=== PATIENT | female | born 1975 | race American Indian/Alaskan Native ===

== ENCOUNTER 2016-08-15 12:24 | Emergency (ER) | payer MEDICAID ==
[2016-08-15 16:57] VITALS: BP 170/83
--- NOTE | 2016-08-15 17:20 | Emergency Department Report ---
- General Chief Complaint: Upper Respiratory Infection Stated Complaint: FABIOLA/BACK PAIN Time Seen by Provider: 08/15/16 16:55 Source: patient Mode of arrival: Ambulatory Limitations: No Limitations - History of Present Illness Initial Comments: Patient presents with congestion, productive cough 1 week. She does work at a daycare facility. She went to [facility] this morning and was given a steroid shot and a nebulizer treatment and O2. She was not getting better at that time so they decided to call EMS to send her here. She states when she got here and was sitting in the waiting area she started feeling better and her shortness of breath resolved. She also has a history of hypertension however it has been controlled recently. She is not on any medication for this. She does state that she hasn't taken [id number] decongestant. MD Complaint: cough, nasal congestion -: week(s) (1) Severity: moderate Severity scale (0 -10): 6 Quality: dull, aching Consistency: intermittent Improves With: nothing Worsens With: nothing Context: sick contacts Associated Symptoms: rhinorrhea, nasal congestion, cough, shortness of breath ( that has resolved). denies: stiff neck - Related Data Previous Rx's Medication Instructions Recorded Last Taken Type Cetirizine HCl [ZyrTEC] 10 mg PO QDAY #5 capsule 06/11/16 Unknown Rx Diphenhydramine HCl [Benadryl 25 mg PO BID PRN #10 tablet 06/11/16 Unknown Rx Allergy TAB] methylPREDNISolone [Medrol] 4 mg PO QAM #1 dosepack 06/11/16 Unknown Rx ALBUTEROL Inhaler [ProAir HFA 2 puff IH QID PRN #1 inhalation 08/15/16 Unknown Rx Inhaler] Allergies Allergy/AdvReac Type Severity Reaction Status Date / Time No Known Allergies Allergy Verified 08/15/16 12:46 ED Review of Systems ROS: Stated complaint: FABIOLA/BACK PAIN Other details as noted in HPI Constitutional: denies: chills, fever Eyes: denies: eye pain, eye discharge, vision change ENT: congestion. denies: ear pain, throat pain Respiratory: cough, shortness of breath (resolved). denies: wheezing Cardiovascular: denies: chest pain, palpitations Gastrointestinal: denies: abdominal pain, nausea, diarrhea Genitourinary: denies: urgency, dysuria, discharge Musculoskeletal: denies: back pain, joint swelling, arthralgia Skin: denies: rash, lesions Neurological: denies: headache, weakness, paresthesias ED Past Medical Hx - Past Medical History Hx Hypertension: Yes - Surgical History Additional Surgical History: TUBAL LIGATION. X 2 - Social History Smoking Status: Never Smoker Substance Use Type: Alcohol - Medications Home Medications: Home Medications Medication Instructions Recorded Confirmed Last Taken Type Cetirizine HCl [ZyrTEC] 10 mg PO QDAY #5 capsule 06/11/16 Unknown Rx Diphenhydramine HCl [Benadryl 25 mg PO BID PRN #10 tablet 06/11/16 Unknown Rx Allergy TAB] methylPREDNISolone [Medrol] 4 mg PO QAM #1 dosepack 06/11/16 Unknown Rx ALBUTEROL Inhaler [ProAir HFA 2 puff IH QID PRN #1 inhalation 08/15/16 Unknown Rx Inhaler] ED Physical Exam - General Limitations: No Limitations General appearance: alert, in no apparent distress - Head Head exam: Present: atraumatic, normocephalic - Eye Eye exam: Present: normal appearance, PERRL - ENT ENT exam: Present: mucous membranes moist, TM's normal bilaterally - Expanded ENT Exam Expanded Mouth exam: Present: normal external inspection Teeth exam: Present: normal inspection Throat exam: Positive: normal inspection - Neck Neck exam: Present: normal inspection, full ROM. Absent: tenderness, lymphadenopathy - Respiratory Respiratory exam: Present: normal lung sounds bilaterally. Absent: respiratory distress, wheezes, rales, rhonchi, stridor - Cardiovascular Cardiovascular Exam: Present: regular rate, normal rhythm. Absent: systolic murmur, diastolic murmur, rubs, gallop - GI/Abdominal GI/Abdominal exam: Present: soft, normal bowel sounds. Absent: tenderness - Extremities Exam Extremities exam: Present: normal inspection, full ROM - Back Exam Back exam: Present: normal inspection, full ROM - Neurological Exam Neurological exam: Present: alert, oriented X3 - Psychiatric Psychiatric exam: Present: normal affect, normal mood - Skin Skin exam: Present: warm, dry, intact, normal color. Absent: rash ED Course Vital Signs 08/15/16 08/15/16 12:42 16:55 Temperature 98.3 F 99.1 F Pulse Rate 85 88 Respiratory 18 18 Rate Blood Pressure 173/92 Blood Pressure 170/83 [Left] O2 Sat by Pulse 100 97 Oximetry ED Medical Decision Making - Medical Decision Making Patient presents with congestion, cough, shortness of breath 1 week. She has been given steroid shot and nebulizer treatment today. I will give her an albuterol inhaler for cough, shortness of breath, wheezing. - Differential Diagnosis pneumonia, URI, asthma Critical Care Time: No Critical care attestation.: If time is entered above; I have spent that time in minutes in the direct care of this critically ill patient, excluding procedure time. ED Disposition Clinical Impression: Shortness of breath, Cough, Bronchitis Disposition: DISCHARGED TO HOME OR SELFCARE Is pt being admited?: No Does the pt Need Aspirin: No Condition: Stable Instructions: Acute Bronchitis (ED), Albuterol (By breathing) Additional Instructions: Follow-up with PCP if symptoms did not resolve or worsen. Prescriptions: ALBUTEROL Inhaler [ProAir HFA Inhaler] 2 puff IH QID PRN #1 inhalation PRN Reason: Shortness Of Breath Forms: Work/School Release Form(ED) Time of Disposition: 17:22
== END 2016-08-15 17:33 | disposition home or self-care (01) ==
LOC: ED 12:24
DX: J40 Bronchitis, not specified as acute or chronic (principal); I10 Essential (primary) hypertension; R09.81 Nasal congestion
CPT/HCPCS: 99283

== ENCOUNTER 2016-08-19 23:01 | Emergency (ER) | payer MEDICAID ==
[2016-08-19 23:16] VITALS: BP 150/58
--- NOTE | 2016-08-19 23:28 | Emergency Department Report ---
Chief Complaint: Chest Pain Stated Complaint: COLD SX Time Seen by Provider: 08/19/16 23:21 - HPI History of Present Illness: Patient here complaining in of chest tightness to left chest area she says she' s having difficulty breathing. She said it started with a cold. Chest pain is 7 out of 10 and it feels tight without any radiation. Patient says she has a history of high blood pressure. Denies any history of heart disease. Denies any fever but reports chills. Denies any nausea vomiting or diarrhea. She reports cough . - ROS Review of Systems: All systems are negative unless stated in HPI above. - Exam Vital Signs: Vital Signs 08/19/16 23:09 Temperature 99.7 F H Pulse Rate 79 Respiratory 16 Rate Blood Pressure 150/58 O2 Sat by Pulse 95 Oximetry Physical Exam: General: This is a 40-year-old female well-nourished well-developed in no acute distress. CV: S1, S2. Regular rate and rhythm. Lungs: Clear to auscultate bilaterally, no rhonchi wheezes or rales. Dry cough MSE screening note: Focused history and physical exam performed. Due to findings the following was ordered:see mdm ED Medical Decision Making - Medical Decision Making Medical decision making: Patient seen by provider in triage area. Appropriate protocol activated and patient to main ED to be seen by physician. ED Disposition for MSE Condition: Stable
[2016-08-20 00:14] LABS: Basophils % (Auto) 0.7 % (0.0-1.8); Hematocrit 30.1 % (30.3-42.9); Mean Corpuscular HGB Conc 33 % (30-34); Mean Corpuscular Hemoglobin 27 pg (28-32); Mean Corpuscular Volume 80 fl (79-97); Platelet Count 274 K/mm3 (140-440); Red Blood Count 3.75 M/mm3 (3.65-5.03); Red Cell Distribution Width 16.7 % (13.2-15.2); White Blood Count 7.7 K/mm3 (4.5-11.0)
[2016-08-20 01:04] LABS: BUN/Creatinine Ratio 16.25; Blood Urea Nitrogen 13 mg/dL (7-17); Calcium 9.2 mg/dL (8.4-10.2); Carbon Dioxide 22 mmol/L (22-30); Chloride 103.1 mmol/L (98-107); Glucose 130 mg/dL (65-100); Potassium 3.5 mmol/L (3.6-5.0); Sodium 141 mmol/L (137-145)
[2016-08-20 01:08] LABS: Anion Gap 19 mmol/L
--- NOTE | 2016-08-20 09:37 | XRay Report ---
Single view chest: History: Shortness of breath, chest pain. Findings: Normal cardiomediastinal silhouette. Trachea is midline. No consolidation, pneumothorax or pleural effusion. Impression: No acute cardiopulmonary findings.
--- NOTE | 2016-08-20 12:47 | ED Elopement Review ---
ED Pt Elopement review - Results review Lab results: Laboratory Tests 08/19/16 08/19/16 08/19/16 23:45 23:45 23:45 WBC 7.7 RBC 3.75 Hgb 10.0 L Hct 30.1 L MCV 80 MCH 27 L MCHC 33 RDW 16.7 H Plt Count 274 Lymph % (Auto) 42.8 H [place] % (Auto) 6.4 Eos % (Auto) 4.0 Baso % (Auto) 0.7 Lymph # 3.3 [place] # 0.5 Eos # 0.3 Baso # 0.1 Seg Neutrophils % 46.1 Seg Neutrophils # 3.5 Sodium 141 Potassium 3.5 L Chloride 103.1 Carbon Dioxide 22 Anion Gap 19 BUN 13 Creatinine 0.8 Estimated GFR > 60 BUN/Creatinine Ratio 16.25 Glucose 130 H Calcium 9.2 Troponin T < 0.010 HCG, Qual Negative 08/20/16 02:37 WBC RBC Hgb Hct MCV MCH MCHC RDW Plt Count Lymph % (Auto) [place] % (Auto) Eos % (Auto) Baso % (Auto) Lymph # [place] # Eos # Baso # Seg Neutrophils % Seg Neutrophils # Sodium Potassium Chloride Carbon Dioxide Anion Gap BUN Creatinine Estimated GFR BUN/Creatinine Ratio Glucose Calcium Troponin T < 0.010 HCG, Qual - Call Back decision Pt Call Back Decision: No action required
== END 2016-08-20 03:45 | disposition left against medical advice (07) ==
LOC: ED 23:01
DX: R07.9 Chest pain, unspecified (principal); R05 Cough; I10 Essential (primary) hypertension; Z53.21 Procedure and treatment not carried out due to patient leaving prior to being seen by health care provider
CPT/HCPCS: 36415; 71020; 80048; 84484; 84703; 85025; 93005; 93010

== ENCOUNTER 2016-08-20 20:35 | Emergency (ER) | payer MEDICAID ==
[2016-08-20 20:47] VITALS: BP 157/84
--- NOTE | 2016-08-20 23:59 | Emergency Department Report ---
HPI - General Chief Complaint: Dyspnea/Respdistress Time Seen by Provider: 08/20/16 23:48 - HPI HPI: Patient here she says she was here last night but she had to leave. She had lab results an x-ray done but she didn't get the results. She says she feels chest and nasal congestion. She said when she coughs her chest hurt. Denies any fever or chills. She says she's feels like she is not getting all the mucus out of her chest. She said this is been going on for over 1 week. Patient's chest x-ray from yesterday showed no acute cardiopulmonary processes. Lab work showed that her potassium was 3.5 which is slightly decreased. She has mild anemia. SHe had cardiac workup and goes around negative. has a history of high blood pressure. She denies any difficulty breathing at present. ED Past Medical Hx - Past Medical History Previous Medical History?: Yes Hx Hypertension: Yes - Surgical History Past Surgical History?: Yes Additional Surgical History: TUBAL LIGATION. X 2 - Family History Family history: hypertension - Social History Smoking Status: Never Smoker Substance Use Type: None - Medications Home Medications: Home Medications Medication Instructions Recorded Confirmed Last Taken Type Diphenhydramine HCl [Benadryl 25 mg PO BID PRN #10 tablet 06/11/16 Unknown Rx Allergy TAB] ALBUTEROL Inhaler [ProAir HFA 2 puff IH QID PRN #1 inhalation 08/15/16 Unknown Rx Inhaler] Amoxicillin [Amoxicillin TAB] 875 mg PO BID #1 tablet 08/21/16 Unknown Rx Cetirizine HCl [ZyrTEC] 10 mg PO QDAY #10 capsule 08/21/16 Unknown Rx Fluticasone [Flonase] 1 spray NS QDAY #1 bottle 08/21/16 Unknown Rx methylPREDNISolone [Medrol Dose 4 mg PO QAM #1 dosepack 08/21/16 Unknown Rx Douglas] ED Review of Systems ROS: Stated complaint: CONGESTION/BREATHING PAIN Other details as noted in HPI Comment: All other systems reviewed and negative Constitutional: denies: chills, fever ENT: congestion. denies: ear pain, throat pain Respiratory: cough. denies: orthopnea, shortness of breath, SOB with exertion, SOB at rest, stridor, wheezing Cardiovascular: chest pain (with cough). denies: palpitations, edema, syncope Gastrointestinal: denies: abdominal pain, nausea, vomiting Musculoskeletal: denies: back pain, arthralgia Skin: denies: rash Neurological: denies: headache Physical Exam - Physical Exam Vital Signs: Vital Signs 08/20/16 20:40 Temperature 98.8 F Pulse Rate 85 Blood Pressure 157/84 O2 Sat by Pulse 99 Oximetry General: This is a 40-year-old female well-nourished well-developed in no acute distress. Physical Exam: Head: Normocephalic atraumatic Mouth: Moist, no pharyngeal exudate or erythema. Uvula is midline and oral airway is patent. No facial swelling. No peritonsillar abscesses. Neck: Supple, no C-spine tenderness, no tracheal deviation. Nontender to palpate. no adenopathy Ears: Bilateral TMs congested without erythema .bilateral EAC without any redness swelling or drainage Eyes: Bilateral pupils equal and reactive to light, bilateral EOM intact. Bilateral sclera and conjunctiva without injection. Normal accommodation Nose: Mucosa moist, positive congestion and erythema. Positive clear drainage. maxillary tender to palpate. Lungs: Clear to auscultate bilaterally no rhonchi wheezes or rales. Normal work of breathing extremity; No CCE. +2 pulses. No neurovascular compromise Cardiovascular: S1-S2, regular rate rhythm. No murmurs. Skin: clean Dry and intact no rash no lesions Psych: Normal mood and behavior ED Course Vital Signs 08/20/16 20:40 Temperature 98.8 F Pulse Rate 85 Blood Pressure 157/84 O2 Sat by Pulse 99 Oximetry - Reevaluation(s) Reevaluation #1: 08/21/16 00:14 KDUR 40 mEq by mouth given in emergency room for potassium of 3.5. ED Medical Decision Making - Radiology Data Radiology results: report reviewed X-ray results of chest from yesterday revealed no acute cardiopulmonary processes - Medical Decision Making ED course: I Discussed with patient her lab results and x-ray results from yesterday. Her that she has sinusitis and will be treated with antibiotic, steroids and nasal Flonase. Patient repleted with K-Dur 40 mEq by mouth times one dose emergency room for potassium of 3.5. She was understanding of discharge instruction and discharged home with prescription for amoxicillin, prednisone and nasal Flonase. Critical care attestation.: If time is entered above; I have spent that time in minutes in the direct care of this critically ill patient, excluding procedure time. ED Disposition Clinical Impression: Cough Sinusitis, acute Qualifiers: Sinusitis location: unspecified location Recurrence: not specified as recurrent Qualified Code(s): J01.90 - Acute sinusitis, unspecified Disposition: DISCHARGED TO HOME OR SELFCARE Is pt being admited?: No Does the pt Need Aspirin: No Condition: Stable Instructions: Sinusitis (ED), Acute Cough (ED) Prescriptions: Amoxicillin [Amoxicillin TAB] 875 mg PO BID #1 tablet Fluticasone [Flonase] 1 spray NS QDAY #1 bottle methylPREDNISolone [Medrol Dose Douglas] 4 mg PO QAM #1 dosepack Cetirizine HCl [ZyrTEC] 10 mg PO QDAY #10 capsule Referrals: VAISHALI RUIZ NP-C [Primary Care Provider] - 2-3 Days Forms: Work/School Release Form(ED)
[2016-08-21] MEDS ORDERED: K-DUR PO ONE (00:07)
== END 2016-08-21 00:33 | disposition home or self-care (01) ==
LOC: ED 20:35
DX: J01.90 Acute sinusitis, unspecified (principal); R05 Cough; I10 Essential (primary) hypertension; Z98.51 Tubal ligation status
CPT/HCPCS: 99282

== ENCOUNTER 2016-08-26 21:14 | Emergency (ER) | payer MEDICAID ==
[2016-08-27 02:27] LABS: Basophils % (Auto) 0.6 % (0.0-1.8); Eosinophils % (Auto) 3.5 % (0.0-4.3); Hematocrit 35.8 % (30.3-42.9); Hemoglobin 11.6 gm/dl (10.1-14.3); Mean Corpuscular HGB Conc 33 % (30-34); Mean Corpuscular Volume 80 fl (79-97); Platelet Count 380 K/mm3 (140-440); Red Blood Count 4.49 M/mm3 (3.65-5.03)
[2016-08-27 02:38] VITALS: BP 134/82
[2016-08-27 02:44] LABS: Creatine Kinase 142 units/L (30-135)
--- NOTE | 2016-08-27 03:03 | Emergency Department Report ---
ED General Adult HPI - General Chief complaint: Upper Respiratory Infection Stated complaint: WEAKNESS, DIZZY Time Seen by Provider: 08/27/16 01:04 Source: patient Mode of arrival: Ambulatory Limitations: No Limitations - History of Present Illness Severity scale (0 -10): 2 - Related Data Previous Rx's Medication Instructions Recorded Last Taken Type Diphenhydramine HCl [Benadryl 25 mg PO BID PRN #10 tablet 06/11/16 Unknown Rx Allergy TAB] ALBUTEROL Inhaler [ProAir HFA 2 puff IH QID PRN #1 inhalation 08/15/16 Unknown Rx Inhaler] Amoxicillin [Amoxicillin TAB] 875 mg PO BID #1 tablet 08/21/16 Unknown Rx Cetirizine HCl [ZyrTEC] 10 mg PO QDAY #10 capsule 08/21/16 Unknown Rx Fluticasone [Flonase] 1 spray NS QDAY #1 bottle 08/21/16 Unknown Rx methylPREDNISolone [Medrol Dose 4 mg PO QAM #1 dosepack 08/21/16 Unknown Rx Douglas] Allergies Allergy/AdvReac Type Severity Reaction Status Date / Time No Known Allergies Allergy Verified 08/15/16 12:46 ED Review of Systems ROS: Stated complaint: WEAKNESS, DIZZY Other details as noted in HPI ED Past Medical Hx - Past Medical History Hx Hypertension: Yes - Surgical History Past Surgical History?: No Additional Surgical History: TUBAL LIGATION. X 2 - Social History Smoking Status: Never Smoker Substance Use Type: Alcohol, Non Opiate Pain, Prescribed - Medications Home Medications: Home Medications Medication Instructions Recorded Confirmed Last Taken Type Diphenhydramine HCl [Benadryl 25 mg PO BID PRN #10 tablet 06/11/16 Unknown Rx Allergy TAB] ALBUTEROL Inhaler [ProAir HFA 2 puff IH QID PRN #1 inhalation 08/15/16 Unknown Rx Inhaler] Amoxicillin [Amoxicillin TAB] 875 mg PO BID #1 tablet 08/21/16 Unknown Rx Cetirizine HCl [ZyrTEC] 10 mg PO QDAY #10 capsule 08/21/16 Unknown Rx Fluticasone [Flonase] 1 spray NS QDAY #1 bottle 08/21/16 Unknown Rx methylPREDNISolone [Medrol Dose 4 mg PO QAM #1 dosepack 08/21/16 Unknown Rx Douglas] ED Physical Exam - General Limitations: No Limitations ED Course Vital Signs 08/26/16 08/27/16 08/27/16 21:29 02:37 02:38 Temperature 98.7 F 98.7 F Pulse Rate 73 64 Respiratory 18 14 Rate Blood Pressure 142/61 Blood Pressure 142/61 134/82 [Left] O2 Sat by Pulse 99 100 100 Oximetry ED Medical Decision Making - Lab Data Result diagrams: 08/27/16 01:47 - EKG Data EKG shows normal: sinus rhythm, axis, intervals, QRS complexes, ST-T waves Rate: normal - EKG Data Interpretation: normal EKG Critical care attestation.: If time is entered above; I have spent that time in minutes in the direct care of this critically ill patient, excluding procedure time. ED Disposition Clinical Impression: Sinus headache Disposition: DISCHARGED TO HOME OR SELFCARE Is pt being admited?: No Does the pt Need Aspirin: No Condition: Stable Instructions: Acute Headache (ED) Additional Instructions: Take tylenol or ibuprofen as needed for discomforts. Rest. Drink plenty of fluids. Referrals: PRIMARY CARE, [Primary Care Provider] - 3-5 Days Time of Disposition: 03:02
[2016-08-27 03:11] LABS: Mean Corpuscular Hemoglobin 26 pg (28-32)
== END 2016-08-27 03:26 | disposition home or self-care (01) ==
LOC: ED 21:14
DX: R51 Headache (principal); I10 Essential (primary) hypertension; Z98.51 Tubal ligation status
CPT/HCPCS: 36415; 82550; 82553; 84484; 85025; 93005; 93010; 99283

== ENCOUNTER 2016-10-15 10:47 | Emergency (ER) | payer MEDICAID ==
--- NOTE | 2016-10-15 16:11 | Emergency Department Report ---
ED Extremity Problem HPI - General Chief complaint: Extremity Problem,Nontraumatic Stated complaint: LT KNEE PAIN Time Seen by Provider: 10/15/16 15:58 Source: patient Mode of arrival: Ambulatory Limitations: No Limitations - History of Present Illness Initial comments: 34-year-old female past medical history none presents with complaint of one week of left-sided knee pain. 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 Denies any paresthesias in the extremity. States she feels pain just behind her kneecap. Patient is fully ambulatory no redness or visible swelling of left knee. No fevers or chills reported. Denies any IV drug use. The chest has not taken anything for the pain. MD Complaint: extremity pain Onset/Timin -: week(s) Location: left History of Same: No Radiation: none Severity scale (0 -10): 5 Quality: aching Consistency: constant Improves with: nothing Worsens with: weight bearing, exertion Associated Symptoms: denies other symptoms - Related Data Previous Rx's Medication Instructions Recorded Last Taken Type Diphenhydramine HCl [Benadryl 25 mg PO BID PRN #10 tablet 06/11/16 Unknown Rx Allergy TAB] ALBUTEROL Inhaler [ProAir HFA 2 puff IH QID PRN #1 inhalation 08/15/16 Unknown Rx Inhaler] Amoxicillin [Amoxicillin TAB] 875 mg PO BID #1 tablet 08/21/16 Unknown Rx Cetirizine HCl [ZyrTEC] 10 mg PO QDAY #10 capsule 08/21/16 Unknown Rx Fluticasone [Flonase] 1 spray NS QDAY #1 bottle 08/21/16 Unknown Rx methylPREDNISolone [Medrol Dose 4 mg PO QAM #1 dosepack 08/21/16 Unknown Rx Douglas] Naproxen [Naprosyn TAB] 500 mg PO BID PRN #30 tablet 10/15/16 Unknown Rx Allergies Allergy/AdvReac Type Severity Reaction Status Date / Time No Known Allergies Allergy Verified 08/15/16 12:46 ED Review of Systems ROS: Stated complaint: LT KNEE PAIN Other details as noted in HPI Constitutional: denies: chills, fever Eyes: denies: eye pain, eye discharge, vision change ENT: denies: ear pain, throat pain Respiratory: denies: cough, shortness of breath, wheezing Cardiovascular: denies: chest pain, palpitations Endocrine: no symptoms reported Gastrointestinal: denies: abdominal pain, nausea, diarrhea Genitourinary: denies: urgency, dysuria, discharge Musculoskeletal: arthralgia (1 week of left-sided knee pain). denies: back pain , joint swelling Skin: denies: rash, lesions Neurological: denies: headache, weakness, paresthesias Psychiatric: denies: anxiety, depression Hematological/Lymphatic: denies: easy bleeding, easy bruising ED Past Medical Hx - Past Medical History Previous Medical History?: Yes Hx Hypertension: Yes - Surgical History Past Surgical History?: Yes Additional Surgical History: TUBAL LIGATION. X 2 - Social History Smoking Status: Never Smoker Substance Use Type: Alcohol - Medications Home Medications: Home Medications Medication Instructions Recorded Confirmed Last Taken Type Diphenhydramine HCl [Benadryl 25 mg PO BID PRN #10 tablet 06/11/16 Unknown Rx Allergy TAB] ALBUTEROL Inhaler [ProAir HFA 2 puff IH QID PRN #1 inhalation 08/15/16 Unknown Rx Inhaler] Amoxicillin [Amoxicillin TAB] 875 mg PO BID #1 tablet 08/21/16 Unknown Rx Cetirizine HCl [ZyrTEC] 10 mg PO QDAY #10 capsule 08/21/16 Unknown Rx Fluticasone [Flonase] 1 spray NS QDAY #1 bottle 08/21/16 Unknown Rx methylPREDNISolone [Medrol Dose 4 mg PO QAM #1 dosepack 08/21/16 Unknown Rx Douglas] Naproxen [Naprosyn TAB] 500 mg PO BID PRN #30 tablet 10/15/16 Unknown Rx ED Physical Exam - General Limitations: No Limitations General appearance: alert, in no apparent distress - Head Head exam: Present: atraumatic, normocephalic - Eye Eye exam: Present: normal appearance, PERRL, EOMI - ENT ENT exam: Present: mucous membranes moist - Neck Neck exam: Present: normal inspection - Respiratory Respiratory exam: Present: normal lung sounds bilaterally. Absent: respiratory distress - Cardiovascular Cardiovascular Exam: Present: regular rate, normal rhythm. Absent: systolic murmur, diastolic murmur, rubs, gallop - GI/Abdominal GI/Abdominal exam: Present: soft, normal bowel sounds - Extremities Exam Extremities exam: Present: normal inspection - Expanded Lower Extremity Exam Left Hip exam: Present: normal inspection, full ROM Upper Leg exam: Present: normal inspection, full ROM Knee exam: Present: normal inspection, full ROM, pain/laxity with valgus, full knee extension (flexion and extension fully intact against resistance) Lower Leg exam: Present: normal inspection, full ROM Ankle exam: Present: normal inspection, full ROM Foot/Toe exam: Present: normal inspection, full ROM Neuro vascular tendon exam: Present: no vascular compromise Gait: Positive: observed and normal - Back Exam Back exam: Present: normal inspection - Neurological Exam Neurological exam: Present: alert, oriented X3, CN II-XII intact, normal gait - Psychiatric Psychiatric exam: Present: normal affect, normal mood - Skin Skin exam: Present: warm, dry, intact, normal color. Absent: rash ED Course Vital Signs 10/15/16 11:17 Temperature 98.4 F Pulse Rate 76 Respiratory 16 Rate Blood Pressure 130/78 O2 Sat by Pulse 100 Oximetry ED Medical Decision Making - Medical Decision Making A/P: Patellofemoral pain, knee strain, knee osteoarthritis 1- Wells Score 0 points Low risk group for DVT. Unlikely according to Wells DVT studies. Left lower extremity neurovascularly intact good popliteal dorsalis pedis and posterior tibial pulses good sensation knee range of motion fully intact against resistance to flexion and extension, x-ray suggestive of possible osteoarthritis of left knee 2- RICE therapy, Marco wrap, naproxen when necessary for pain 3- follow up with primary care and orthopedics Critical care attestation.: If time is entered above; I have spent that time in minutes in the direct care of this critically ill patient, excluding procedure time. ED Disposition Clinical Impression: Left knee pain Qualifiers: Chronicity: chronic Qualified Code(s): M25.562 - Pain in left knee; G89.29 - Other chronic pain Disposition: DISCHARGED TO HOME OR SELFCARE Is pt being admited?: No Does the pt Need Aspirin: No Condition: Stable Instructions: Knee Pain (ED), Patellofemoral Pain Syndrome (ED), Arthralgia (ED ), RICE Therapy (ED) Prescriptions: Naproxen [Naprosyn TAB] 500 mg PO BID PRN #30 tablet PRN Reason: Pain Referrals: FRANCISCA LEYVA JR, MD [Staff Physician] - 3-5 Days [facility] [Provider Group] - 3-5 Days BOWEN MI MD [Staff Physician] - 3-5 Days Forms: Work/School Release Form(ED) Time of Disposition: 16:51
[2016-10-15] MEDS ORDERED: MOTRIN PO ONE (16:15)
[2016-10-15 17:31] VITALS: BP 125/86
--- NOTE | 2016-10-16 09:00 | XRay Report ---
LEFT KNEE: The bony architecture is intact without evidence of fracture or dislocation. No significant soft tissue abnormality is seen. IMPRESSION: Normal left knee.
== END 2016-10-15 17:30 | disposition home or self-care (01) ==
LOC: ED 10:47
DX: M25.562 Pain in left knee (principal); I10 Essential (primary) hypertension
CPT/HCPCS: 99283

== ENCOUNTER 2017-06-13 09:26 | Emergency (ER) | payer SELFPAY ==
[2017-06-13 10:00] VITALS: BP 135/78
[2017-06-13] MEDS ORDERED: TORADOL IM ONE (11:25)
--- NOTE | 2017-06-13 11:45 | Emergency Department Report ---
ED Back Pain/Injury HPI - General Chief Complaint: Back Pain/Injury Stated Complaint: LOWER BACK PAIN Time Seen by Provider: 06/13/17 11:15 Source: patient Limitations: No Limitations - History of Present Illness Initial Comments: This is a 41-year-old female nontoxic, well nourished in appearance, no acute signs of distress presents to the ED with c/o of low back pain that radiates towards right-sided buttock and right lower extremity. Patient stated this is a chronic condition and is intermittent and relieved with Motrin mostly but now has no relief. Patient states she woke up with this but denies any trauma. Denies any numbness, tingling, fever, chills, nausea, vomiting, chest pain or shortness of breath. Denies any allergies. Denies dysuria, polyuria, hematuria. Denies past medical history. Patient denies any bladder or bowel instability. MD Complaint: back pain -: Gradual Similar Symptoms Previously: Yes Place: home Radiation: buttocks, right leg Severity: mild Severity scale (0 -10): 8 Quality: aching Consistency: constant Improves With: movement, walking Worsens With: supine, sitting upright Associated Symptoms: denies other symptoms. denies: confusion, weakness, chest pain, numbness, difficulty walking, cough, difficulty urinating, diaphoresis, incontinence, fever/chills, constipation, headaches, abdominal pain, loss of appetite, malaise, nausea/vomiting, rash, seizure, shortness of breath, syncope - Related Data Previous Rx's Medication Instructions Recorded Last Taken Type Diphenhydramine HCl [Benadryl 25 mg PO BID PRN #10 tablet 06/11/16 Unknown Rx Allergy TAB] ALBUTEROL Inhaler [ProAir HFA 2 puff IH QID PRN #1 inhalation 08/15/16 Unknown Rx Inhaler] Amoxicillin [Amoxicillin TAB] 875 mg PO BID #1 tablet 08/21/16 Unknown Rx Cetirizine HCl [ZyrTEC] 10 mg PO QDAY #10 capsule 08/21/16 Unknown Rx Fluticasone [Flonase] 1 spray NS QDAY #1 bottle 08/21/16 Unknown Rx methylPREDNISolone [Medrol Dose 4 mg PO QAM #1 dosepack 08/21/16 Unknown Rx Douglas] Naproxen [Naprosyn TAB] 500 mg PO BID PRN #30 tablet 10/15/16 Unknown Rx Cyclobenzaprine [Flexeril] 10 mg PO BID PRN #10 tablet 06/13/17 Unknown Rx Ibuprofen [Motrin] 600 mg PO Q8H PRN #30 tablet 06/13/17 Unknown Rx Allergies Allergy/AdvReac Type Severity Reaction Status Date / Time No Known Allergies Allergy Verified 08/15/16 12:46 ED Review of Systems ROS: Stated complaint: LOWER BACK PAIN Other details as noted in HPI Constitutional: denies: chills, fever Eyes: denies: eye pain, eye discharge, vision change ENT: denies: ear pain, throat pain Respiratory: denies: cough, shortness of breath, wheezing Cardiovascular: denies: chest pain, palpitations Endocrine: no symptoms reported Gastrointestinal: denies: abdominal pain, nausea, diarrhea Genitourinary: denies: urgency, dysuria, discharge Musculoskeletal: back pain. denies: joint swelling, arthralgia Skin: denies: rash, lesions Neurological: denies: headache, weakness, paresthesias Psychiatric: denies: anxiety, depression Hematological/Lymphatic: denies: easy bleeding, easy bruising ED Past Medical Hx - Past Medical History Previous Medical History?: No Hx Hypertension: No - Surgical History Past Surgical History?: No Additional Surgical History: TUBAL LIGATION. X 2 - Social History Smoking Status: Never Smoker Substance Use Type: None - Medications Home Medications: Home Medications Medication Instructions Recorded Confirmed Last Taken Type Diphenhydramine HCl [Benadryl 25 mg PO BID PRN #10 tablet 06/11/16 Unknown Rx Allergy TAB] ALBUTEROL Inhaler [ProAir HFA 2 puff IH QID PRN #1 inhalation 08/15/16 Unknown Rx Inhaler] Amoxicillin [Amoxicillin TAB] 875 mg PO BID #1 tablet 08/21/16 Unknown Rx Cetirizine HCl [ZyrTEC] 10 mg PO QDAY #10 capsule 08/21/16 Unknown Rx Fluticasone [Flonase] 1 spray NS QDAY #1 bottle 08/21/16 Unknown Rx methylPREDNISolone [Medrol Dose 4 mg PO QAM #1 dosepack 08/21/16 Unknown Rx Douglas] Naproxen [Naprosyn TAB] 500 mg PO BID PRN #30 tablet 10/15/16 Unknown Rx Cyclobenzaprine [Flexeril] 10 mg PO BID PRN #10 tablet 06/13/17 Unknown Rx Ibuprofen [Motrin] 600 mg PO Q8H PRN #30 tablet 06/13/17 Unknown Rx ED Physical Exam - General Limitations: No Limitations General appearance: alert, in no apparent distress - Head Head exam: Present: atraumatic, normocephalic - Eye Eye exam: Present: normal appearance, PERRL, EOMI. Absent: scleral icterus, conjunctival injection, nystagmus, periorbital swelling, periorbital tenderness Pupils: Present: normal accommodation - ENT ENT exam: Present: normal exam, normal orophraynx, mucous membranes moist, TM's normal bilaterally, normal external ear exam - Neck Neck exam: Present: normal inspection, full ROM. Absent: tenderness, meningismus, lymphadenopathy, thyromegaly - Respiratory Respiratory exam: Present: normal lung sounds bilaterally. Absent: respiratory distress, wheezes, rales, rhonchi, stridor, chest wall tenderness, accessory muscle use, decreased breath sounds, prolonged expiratory - Cardiovascular Cardiovascular Exam: Present: regular rate, normal rhythm, normal heart sounds. Absent: bradycardia, tachycardia, irregular rhythm, systolic murmur, diastolic murmur, rubs, gallop - GI/Abdominal GI/Abdominal exam: Present: soft, normal bowel sounds. Absent: distended, tenderness, guarding, rebound, rigid, diminished bowel sounds - Rectal Rectal exam: Present: deferred - Extremities Exam Extremities exam: Present: normal inspection, full ROM, normal capillary refill. Absent: tenderness, pedal edema, joint swelling, calf tenderness - Back Exam Back exam: Present: normal inspection, full ROM, paraspinal tenderness (lumbar region). Absent: tenderness, CVA tenderness (R), CVA tenderness (L), muscle spasm, vertebral tenderness, rash noted - Expanded Back Exam Expanded Back exam: Present: normal rectal tone (as per patient). Absent: saddle anesthesia Back exam: Negative Straight Leg Raising: Left, Right - Neurological Exam Neurological exam: Present: alert, oriented X3, CN II-XII intact, normal gait, reflexes normal - Psychiatric Psychiatric exam: Present: normal affect, normal mood - Skin Skin exam: Present: warm, dry, intact, normal color. Absent: rash - Other Other exam information: No bladder or bowel instability. No joint swelling or redness. No deformity. No numbness, no tingling. No ecchymosis. No abdominal distention. ED Course Vital Signs 06/13/17 09:55 Temperature 97.9 F Pulse Rate 74 Respiratory 18 Rate Blood Pressure 135/78 O2 Sat by Pulse 99 Oximetry - Reevaluation(s) Reevaluation #1: 06/13/17 12:08 Patient is speaking in full sentences with no signs of distress noted. ED Medical Decision Making - Medical Decision Making This is a 41-year-old female that presents with low back strain. Patient is stable and was examined by me. Patient received Toradol 30 mg IM the ED which patient states symptoms are improving and are subsiding. UA obtained with normal results. Patient be treated with Flexeril and Motrin at discharge. Patient was instructed Follow-up with a primary care doctor in 3-5 days or if symptoms worsen and continue return to emergency room as soon as possible. At time time of discharge, the patient does not seem toxic or ill in appearance. No acute signs of distress noted. Patient agrees to discharge treatment plan of care. No further questions noted by the patient. Critical care attestation.: If time is entered above; I have spent that time in minutes in the direct care of this critically ill patient, excluding procedure time. ED Disposition Clinical Impression: Low back strain Qualifiers: Encounter type: initial encounter Qualified Code(s): S39.012A - Strain of muscle, fascia and tendon of lower back, initial encounter Disposition: - TO HOME OR SELFCARE Is pt being admited?: No Does the pt Need Aspirin: No Condition: Stable Instructions: Ibuprofen (By mouth), Cyclobenzaprine (By mouth), Low Back Strain (ED) Additional Instructions: Follow-up with a primary care doctor in 3-5 days or if symptoms worsen and continue return to emergency room as soon as possible. Take ibuprofen and Flexeril as prescribed. Do not operate heavy machinery while taking Flexeril due to sedation Prescriptions: Cyclobenzaprine [Flexeril] 10 mg PO BID PRN #10 tablet PRN Reason: Muscle Spasm Ibuprofen [Motrin] 600 mg PO Q8H PRN #30 tablet PRN Reason: Pain Referrals: [facility] [Other] - 3-5 Days MECCA CHOWDARY MD [Staff Physician] - 3-5 Days [facility] [Outside] - 3-5 Days [facility] [Outside] - 3-5 Days Forms: Work/School Release Form(ED)
[2017-06-13 12:32] LABS: Bilirubin,Urine NEG (Negative); Blood,Urine NEG (Negative); Ketones,Urine NEG (Negative); Leukocyte Esterase,Urine NEG (Negative); Mucus,Urine FEW /HPF; Nitrite,Urine NEG (Negative); Protein,Urine <15 mg/dL mg/dL (Negative); Urobilinogen,Urine < 2.0 mg/dL (<2.0)
== END 2017-06-13 12:48 | disposition home or self-care (01) ==
LOC: ED 09:26
DX: S39.012A Strain of muscle, fascia and tendon of lower back, initial encounter (principal); X58.XXXA Exposure to other specified factors, initial encounter; Y93.89 Activity, other specified; Y92.89 Other specified places as the place of occurrence of the external cause; Y99.8 Other external cause status
CPT/HCPCS: 81001; 81025; 96372; 99283; J1885

== ENCOUNTER 2017-07-30 19:27 | Emergency (ER) | payer SELFPAY ==
[2017-07-30 19:57] VITALS: BP 143/68
[2017-07-30] MEDS ORDERED: ASPIRIN PO ONE (19:57)
[2017-07-30 20:24] LABS: Basophils % (Auto) 0.5 % (0.0-1.8); Eosinophils # (Auto) 0.2 K/mm3 (0.0-0.4); Eosinophils % (Auto) 2.6 % (0.0-4.3); Hematocrit 30.7 % (30.3-42.9); Hemoglobin 10.4 gm/dl (10.1-14.3); Lymphocytes # (Auto) 3.6 K/mm3 (1.2-5.4); Lymphocytes % (Auto) 49.8 % (13.4-35.0); Mean Corpuscular HGB Conc 34 % (30-34); Mean Corpuscular Hemoglobin 29 pg (28-32); Mean Corpuscular Volume 87 fl (79-97); Monocytes # (Auto) 0.5 K/mm3 (0.0-0.8); Monocytes % (Auto) 6.5 % (0.0-7.3); Platelet Count 254 K/mm3 (140-440); Red Blood Count 3.54 M/mm3 (3.65-5.03); Red Cell Distribution Width 14.7 % (13.2-15.2)
[2017-07-30 20:32] LABS: BUN/Creatinine Ratio 12; Blood Urea Nitrogen 11 mg/dL (7-17); Calcium 8.8 mg/dL (8.4-10.2); Hemolysis Index 4
== END 2017-07-31 02:25 | disposition left against medical advice (07) ==
LOC: ED 19:27
DX: Z53.21 Procedure and treatment not carried out due to patient leaving prior to being seen by health care provider (principal)
CPT/HCPCS: 36415; 80048; 84484; 84703; 85025; 93005; 93010

== ENCOUNTER 2017-08-10 20:48 | Emergency (ER) | payer SELFPAY ==
[2017-08-10 21:26] VITALS: BP 133/88
[2017-08-10] MEDS ORDERED: ASPIRIN PO ONE (21:27)
[2017-08-10 22:35] LABS: HCG Qualitative,Urine Negative (Negative)
== END 2017-08-11 10:30 | disposition left against medical advice (07) ==
LOC: ED 20:48
DX: R07.9 Chest pain, unspecified (principal); Z53.21 Procedure and treatment not carried out due to patient leaving prior to being seen by health care provider
CPT/HCPCS: 81025; 93005; 93010

== ENCOUNTER 2017-09-05 19:24 | Emergency (ER) | payer SELFPAY ==
[2017-09-05 20:09] VITALS: BP 134/62
[2017-09-05 21:35] LABS: Bilirubin,Urine NEG (Negative); Blood,Urine MOD (Negative); Color,Urine Red (Yellow); Nitrite,Urine NEG (Negative); Urobilinogen,Urine < 2.0 mg/dL (<2.0)
[2017-09-05 21:37] LABS: RBC,Urine > 182.0 /HPF (0.0-6.0)
[2017-09-05 22:00] LABS: Basophils # (Auto) 0.1 K/mm3 (0.0-0.1); Basophils % (Auto) 0.7 % (0.0-1.8); Eosinophils # (Auto) 0.1 K/mm3 (0.0-0.4); Eosinophils % (Auto) 1.7 % (0.0-4.3); Hemoglobin 10.5 gm/dl (10.1-14.3); Lymphocytes # (Auto) 3.7 K/mm3 (1.2-5.4); Lymphocytes % (Auto) 50.6 % (13.4-35.0); Mean Corpuscular HGB Conc 33 % (30-34); Mean Corpuscular Hemoglobin 28 pg (28-32); Mean Corpuscular Volume 86 fl (79-97); Monocytes # (Auto) 0.4 K/mm3 (0.0-0.8); Monocytes % (Auto) 5.6 % (0.0-7.3); Platelet Count 304 K/mm3 (140-440); Red Blood Count 3.72 M/mm3 (3.65-5.03); Red Cell Distribution Width 14.9 % (13.2-15.2)
[2017-09-05 22:20] LABS: Alanine Aminotransferase 8 units/L (7-56); Albumin 4.3 g/dL (3.9-5); BUN/Creatinine Ratio 16; Blood Urea Nitrogen 13 mg/dL (7-17); Calcium 9.4 mg/dL (8.4-10.2); Hemolysis Index 7
== END 2017-09-06 00:20 | disposition left against medical advice (07) ==
LOC: ED 19:24
DX: R10.9 Unspecified abdominal pain (principal); Z53.21 Procedure and treatment not carried out due to patient leaving prior to being seen by health care provider
CPT/HCPCS: 36415; 80053; 81001; 84703; 85025

== ENCOUNTER 2019-06-15 19:23 | Emergency (ER) | payer OTHER ==
[2019-06-15 19:38] VITALS: BP 171/80
--- NOTE | 2019-06-15 20:10 | Emergency Department Report ---
ED General Adult HPI - General Chief complaint: Upper Respiratory Infection Stated complaint: HEAD CONGESTION Time Seen by Provider: 06/15/19 20:06 Source: patient Mode of arrival: Ambulatory Limitations: No Limitations - History of Present Illness Initial comments: pt is a 43 yo female who presents to the ED with c/o sinus pressure that began two weeks ago. she has associated TAMAYO, nasal congestion, rhinorrhea. she denies any fever, sore throat, no ear pain, no vomiting, no abd pain. PMHx HTN. no allergies to meds. LNMP: 05/26/19. - Related Data Previous Rx's Medication Instructions Recorded Last Taken Type Amoxicillin/Potassium Clav 1 each PO BID 7 Days #14 tablet 06/15/19 Unknown Rx [Augmentin 875-125 Tablet] Cetirizine HCl [Zyrtec 10mg tab] 10 mg PO DAILY #30 tablet 06/15/19 Unknown Rx Fluticasone [Flonase] 1 spray NS QDAY #1 bottle 06/15/19 Unknown Rx Allergies Allergy/AdvReac Type Severity Reaction Status Date / Time No Known Allergies Allergy Verified 08/15/16 12:46 ED Review of Systems ROS: Stated complaint: HEAD CONGESTION Other details as noted in HPI Comment: All other systems reviewed and negative ED Past Medical Hx - Past Medical History Previous Medical History?: Yes Hx Hypertension: Yes - Surgical History Past Surgical History?: Yes Additional Surgical History: TUBAL LIGATION. X 2 - Social History Smoking Status: Never Smoker Substance Use Type: None - Medications Home Medications: Home Medications Medication Instructions Recorded Confirmed Last Taken Type Amoxicillin/Potassium Clav 1 each PO BID 7 Days #14 tablet 06/15/19 Unknown Rx [Augmentin 875-125 Tablet] Cetirizine HCl [Zyrtec 10mg tab] 10 mg PO DAILY #30 tablet 06/15/19 Unknown Rx Fluticasone [Flonase] 1 spray NS QDAY #1 bottle 06/15/19 Unknown Rx ED Physical Exam - General Limitations: No Limitations General appearance: alert, in no apparent distress - Head Head exam: Present: atraumatic, normocephalic - Eye Eye exam: Present: normal appearance, PERRL, EOMI. Absent: periorbital swelling, periorbital tenderness - ENT ENT exam: Present: normal orophraynx, mucous membranes moist, TM's normal bilaterally, normal external ear exam, other (bilateral frontal sinus TTP, erythema turbinates and purulent discharge ) ED Course Vital Signs 06/15/19 06/15/19 19:37 20:06 Temperature 99.1 F 99.1 F Pulse Rate 75 73 Respiratory 18 18 Rate Blood Pressure 171/80 171/80 O2 Sat by Pulse 100 98 Oximetry ED Medical Decision Making - Medical Decision Making pt is a 43 yo female who presents to the ED with c/o sinus pressure that began two weeks ago. she has associated TAMAYO, nasal congestion, rhinorrhea. she denies any fever, sore throat, no ear pain, no vomiting, no abd pain. PMHx HTN. no allergies to meds. LNMP: 05/26/19. VSS. on exam: bilateral frontal sinus TTP, george thema turbinates and purulent discharge. examination consistent with sinusitis. given prescription for augmentin, zyrtec, flonase. advised pt to please use medication as prescribed. increase your water intake. may use a humidifier. may take tylenol or ibuprofen for any discomfort. follow up with a primary care doctor and a ear, nose and throat doctor in the next 2-3 days. return to the emergency room for any new or worsening symptoms. - Differential Diagnosis URI, sinusitis, viral syndrome, otitis media Critical care attestation.: If time is entered above; I have spent that time in minutes in the direct care of this critically ill patient, excluding procedure time. ED Disposition Clinical Impression: Sinusitis Qualifiers: Sinusitis location: frontal Chronicity: acute Recurrence: non-recurrent Qualified Code(s): J01.10 - Acute frontal sinusitis, unspecified Disposition: DC-01 TO HOME OR SELFCARE Is pt being admited?: No Does the pt Need Aspirin: No Condition: Stable Instructions: Sinusitis (ED) Additional Instructions: please use medication as prescribed. increase your water intake. may use a humidifier. may take tylenol or ibuprofen for any discomfort. follow up with a primary care doctor and a ear, nose and throat doctor in the next 2-3 days. return to the emergency room for any new or worsening symptoms. Prescriptions: Amoxicillin/Potassium Clav [Augmentin 875-125 Tablet] 1 each PO BID 7 Days #14 tablet Fluticasone [Flonase] 1 spray NS QDAY #1 bottle Cetirizine HCl [Zyrtec 10mg tab] 10 mg PO DAILY #30 tablet Referrals: SHOSHANA JAMIL MD [Staff Physician] - 2-3 Days your, primary care doctor [Other] - 2-3 Days Time of Disposition: 20:20 Print Language: CITIZEN OF [place]
== END 2019-06-15 20:44 | disposition home or self-care (01) ==
LOC: ED 19:23
DX: J32.9 Chronic sinusitis, unspecified (principal); I10 Essential (primary) hypertension; Z98.51 Tubal ligation status; Z79.899 Other long term (current) drug therapy

== ENCOUNTER 2019-06-17 18:28 | Emergency (ER) | payer OTHER ==
[2019-06-17 18:46] VITALS: BP 163/95
--- NOTE | 2019-06-17 18:50 | Event Note ---
ED Screening Note Date of service: 06/17/19 Time: 18:48 ED Screening Note: This is a 43 y.o. F. that presents to the ER with headache and dizziness. Patient states she is currently taking amoxicillin and flonase for sinusitis. States a near syncopal episode today with blurry vision. LMP 05/26/2019 PMH of HTN This initial assessment/diagnostic orders/clinical plan/treatment(s) is/are subject to change based on patients health status, clinical progression and re- assessment by fellow clinical providers in the ED. Further treatment and workup at subsequent clinical providers discretion. Patient/guardian urged not to elope from the ED as their condition may be serious if not clinically assessed and managed. Initial orders include: CT of Head
[2019-06-17] MEDS ORDERED: predniSONE 20 MG TAB PO ONE (19:26)
[2019-06-17] MEDS ORDERED: IBUPROFEN 800 MG TAB PO ONE (19:26)
[2019-06-17] MEDS ORDERED: diphenhydrAMINE 25 MG CAP PO ONE (19:26)
[2019-06-17] MEDS: AMOXICILLIN/K CLAV 875/125MG TAB PO ONE ×2 (19:37→19:40)
--- NOTE | 2019-06-17 19:49 | Emergency Department Report ---
ED Dizziness HPI - General Chief Complaint: Dizziness Stated Complaint: HEAD PRESSURE Time Seen by Provider: 06/17/19 18:42 Source: patient Mode of arrival: Ambulatory Limitations: No Limitations - History of Present Illness Initial Comments: Ms. Willard is a 43-year-old Afro[place] female who presents with dizziness, and near syncope episode x 1 today after bending over to retrieve object for cabinet in kitchen. Pt denies substance, no fever or chills. Patient was diagnosed with sinusitis on 5 days ago is now taking amoxicillin and Flonase for same. patient has not followed-up with ENT. patient does complain of frontal headache and pressure to frontal and maxillary sinuses with yellow clear rhinorrhea intermittently. There is no chest pain or shortness of breath, no nausea/ vomiting, no back pain , no history of coronary artery disease, patient is ambulatory to baseline per patient was steady gait. MD Complaint: dizziness Onset/Timin -: days(s) Timing: gradual onset Description: sense of movement History of Same: Yes History of Trauma: No Severity: moderate Improves With: remaining still Worsens With: movement Associated Symptoms: denies other symptoms - Related Data Previous Rx's Medication Instructions Recorded Last Taken Type Amoxicillin/Potassium Clav 1 each PO BID 7 Days #14 tablet 06/15/19 Unknown Rx [Augmentin 875-125 Tablet] Cetirizine HCl [Zyrtec 10mg tab] 10 mg PO DAILY #30 tablet 06/15/19 Unknown Rx Fluticasone [Flonase] 1 spray NS QDAY #1 bottle 06/15/19 Unknown Rx Acetaminophen [Acetaminophen TAB] 1,000 mg PO Q6HR PRN #30 tablet 06/17/19 Unknown Rx Metoclopramide [Reglan] 10 mg PO Q6H #30 tablet 06/17/19 Unknown Rx diphenhydrAMINE [Benadryl CAP] 25 mg PO Q6HR PRN #30 capsule 06/17/19 Unknown Rx Allergies Allergy/AdvReac Type Severity Reaction Status Date / Time No Known Allergies Allergy Verified 08/15/16 12:46 ED Review of Systems ROS: Stated complaint: HEAD PRESSURE Other details as noted in HPI Constitutional: no symptoms reported Eyes: denies: eye pain, eye discharge, vision change ENT: ear pain, throat pain, congestion Respiratory: denies: cough, shortness of breath, wheezing Cardiovascular: denies: chest pain, palpitations Endocrine: no symptoms reported Gastrointestinal: denies: abdominal pain, nausea, diarrhea Genitourinary: denies: urgency, dysuria, discharge Musculoskeletal: denies: back pain, joint swelling, arthralgia Skin: denies: rash, lesions Neurological: headache. denies: weakness, numbness, paresthesias, confusion, vertigo Psychiatric: as per HPI Hematological/Lymphatic: denies: easy bleeding, easy bruising ED Past Medical Hx - Past Medical History Previous Medical History?: No Hx Hypertension: Yes - Surgical History Additional Surgical History: TUBAL LIGATION. X 2 - Social History Smoking Status: Never Smoker Substance Use Type: None - Medications Home Medications: Home Medications Medication Instructions Recorded Confirmed Last Taken Type Amoxicillin/Potassium Clav 1 each PO BID 7 Days #14 tablet 06/15/19 Unknown Rx [Augmentin 875-125 Tablet] Cetirizine HCl [Zyrtec 10mg tab] 10 mg PO DAILY #30 tablet 06/15/19 Unknown Rx Fluticasone [Flonase] 1 spray NS QDAY #1 bottle 06/15/19 Unknown Rx Acetaminophen [Acetaminophen TAB] 1,000 mg PO Q6HR PRN #30 tablet 06/17/19 Unknown Rx Metoclopramide [Reglan] 10 mg PO Q6H #30 tablet 06/17/19 Unknown Rx diphenhydrAMINE [Benadryl CAP] 25 mg PO Q6HR PRN #30 capsule 06/17/19 Unknown Rx ED Physical Exam - General Limitations: No Limitations General appearance: alert, in no apparent distress - Head Head exam: Present: atraumatic, normocephalic - Eye Eye exam: Present: normal appearance, PERRL, EOMI Pupils: Present: normal accommodation - ENT ENT exam: Present: normal exam, normal orophraynx, mucous membranes moist, TM's normal bilaterally, normal external ear exam, other (bilat frontal and maxillary sinus pain to palpation, no erythema or swelling ) - Expanded ENT Exam Expanded Ear exam: Present: normal external inspection Throat exam: Positive: normal inspection. Negative: tonsillar erythema, tonsillomegaly, tonsillar exudate, R peritonsillar mass, L peritonsillar mass - Neck Neck exam: Present: normal inspection, full ROM. Absent: tenderness, meningismus, lymphadenopathy, thyromegaly - Respiratory Respiratory exam: Present: normal lung sounds bilaterally. Absent: respiratory distress, wheezes, stridor, chest wall tenderness - Cardiovascular Cardiovascular Exam: Present: regular rate, normal rhythm, normal heart sounds. Absent: systolic murmur, diastolic murmur, rubs, gallop - GI/Abdominal GI/Abdominal exam: Present: soft, normal bowel sounds. Absent: distended, tenderness, bruit, hernia - Rectal Rectal exam: Present: deferred - Extremities Exam Extremities exam: Present: normal inspection, full ROM, normal capillary refill. Absent: tenderness, joint swelling - Back Exam Back exam: Present: normal inspection, full ROM. Absent: tenderness, CVA tenderness (R), CVA tenderness (L) - Neurological Exam Neurological exam: Present: alert, oriented X3, CN II-XII intact, normal gait - Expanded Neurological Exam Expanded Patient oriented to: Present: person, place, time Speech: Present: fluid speech Cranial nerves: EOM's Intact: Normal, Gag Reflex: Normal, Tongue Deviation: Normal, Nystagmus: Normal, Facial Sensation: Normal Motor strength exam: RUE: 5, LUE: 5, RLE: 5, LLE: 5 Best Eye Response ([place]): (4) open spontaneously Best Motor Response ([place]): (6) obeys commands Best Verbal Response ([place]): (5) oriented Christopher Total: 15 - Psychiatric Psychiatric exam: Present: normal affect, normal mood, flat affect - Skin Skin exam: Present: warm, dry, intact, normal color. Absent: rash ED Course Vital Signs 06/17/19 18:43 Temperature 98.7 F Pulse Rate 87 Respiratory 18 Rate Blood Pressure 163/95 O2 Sat by Pulse 99 Oximetry ED Medical Decision Making - EKG Data EKG shows normal: sinus rhythm, axis, intervals, QRS complexes, ST-T waves Rate: normal - EKG Data When compared to previous EKG there are: no significant change, previous EKG unavailable Interpretation: normal EKG (ekg interp by ed attending NSR no ST Elevated [place] ) - Radiology Data Radiology results: report reviewed, image reviewed Findings [facility] [address] [place] [address] Cat Scan Report Signed Patient: ANA WILLARD MR#: [id number] : 1975 Acct:[id number] Age/Sex: 43 / F ADM Date: 06/17/19 Loc: ED Attending Dr: Ordering Physician: ZOILA CHAO Date of Service: 06/17/19 Procedure(s): CT head/brain wo con Accession Number(s): [id number] cc: ZOILA CHAO CT BRAIN: 06/17/2019 INDICATION / CLINICAL INFORMATION: dizziness and headache. COMPARISON: None available. FINDINGS: BRAIN/INTRACRANIAL STRUCTURES: Unenhanced CT images of the brain demonstrate no evidence of acute intracranial abnormality. Ventricles and sulci are normal in size and shape. There is no evidence of ischemic injury, hemorrhage, or mass. There are no abnormal extra-axial fluid collections. EXTRACRANIAL STRUCTURES: Unremarkable. IMPRESSION: No acute abnormality. All CT scans at this location are performed using dose reduction to ALARA by means of automated exposure control. Signer Name: En Schultz MD Signed: 06/17/2019 9:01 PM Workstation Name: [id number] Transcribed By: AO Dictated By: En Schultz MD Electronically Authenticated By: En Schultz MD Signed Date/Time: 06/17/192100 DD/ 58 TD/TT: - Medical Decision Making ct: normal no abnormalities, ekg: nsr no st elevated mi, symptoms are improved with medications given in ed. will dc to home at this time, pt will follow puo with neurology and pcp. pt is currently a/o x 3 ambulatory with steady gait, nad at this time. Critical care attestation.: If time is entered above; I have spent that time in minutes in the direct care of this critically ill patient, excluding procedure time. ED Disposition Clinical Impression: Dizziness Sinusitis Qualifiers: Sinusitis location: maxillary Chronicity: acute Recurrence: non-recurrent Qualified Code(s): J01.00 - Acute maxillary sinusitis, unspecified Disposition: DC-01 TO HOME OR SELFCARE Is pt being admited?: No Does the pt Need Aspirin: No Condition: Stable Instructions: Sinusitis (ED), Dizziness (ED) Prescriptions: Acetaminophen [Acetaminophen TAB] 1,000 mg PO Q6HR PRN #30 tablet PRN Reason: Headache diphenhydrAMINE [Benadryl CAP] 25 mg PO Q6HR PRN #30 capsule PRN Reason: headache dizziness congestion Metoclopramide [Reglan] 10 mg PO Q6H #30 tablet Referrals: PRIMARY CAREMD [Primary Care Provider] - 3-5 Days BRITTANY BOX MD [Referring] - 3-5 Days HALLE FREITAS MD [Staff Physician] - 3-5 Days Forms: Work/School Release Form(ED) Time of Disposition: 21:45
--- NOTE | 2019-06-17 21:06 | Cat Scan Report ---
CT BRAIN: 06/17/2019 INDICATION / CLINICAL INFORMATION: dizziness and headache. COMPARISON: None available. FINDINGS: BRAIN/INTRACRANIAL STRUCTURES: Unenhanced CT images of the brain demonstrate no evidence of acute int racranial abnormality. Ventricles and sulci are normal in size and shape. There is no evidence of ischemic injury, hemorrhage, or mass. There are no abnormal extra-axial fluid collections. EXTRACRANIAL STRUCTURES: Unremarkable. IMPRESSION: No acute abnormality. All CT scans at this location are performed using dose reduction to ALARA by means of automated expos ure control. Signer Name: En Schultz MD Signed: 06/17/2019 9:01 PM Workstation Name: [id number]
== END 2019-06-17 22:00 | disposition home or self-care (01) ==
LOC: ED 18:28
DX: J01.00 Acute maxillary sinusitis, unspecified (principal); I10 Essential (primary) hypertension; Z98.51 Tubal ligation status; Z98.890 Other specified postprocedural states; Z79.899 Other long term (current) drug therapy
CPT/HCPCS: 70450; 93005; 93010; 99283; J7512

== ENCOUNTER 2019-06-22 14:54 | Emergency (ER) | payer OTHER ==
[2019-06-22 15:47] VITALS: BP 174/86
--- NOTE | 2019-06-22 16:07 | Emergency Department Report ---
Chief Complaint: Headache Stated Complaint: HEAD PRESSURE Time Seen by Provider: 06/22/19 15:51 - Exam Vital Signs: Vital Signs 06/22/19 15:46 Temperature 98.2 F Pulse Rate 78 Respiratory 18 Rate Blood Pressure 174/86 O2 Sat by Pulse 100 Oximetry MSE screening note: Focused history and physical exam performed. Due to findings the following was ordered: 43 yo female seen at this ER on 06/17/19 for "pressure in her head". She denies any fall injuries or trauma. She denies any change in her condition since last seen. She is requesting further evaluation of the pressure in her head. Denies headache nausea vomiting, no chest pain no sob. No fever or chills. No focal weakness, no change in vision . I reviewed CT done on 06/17/19 no acute findings. Reviewed with patient she wants to know what other work-up can we do. Pt states she followed up with her PCP and he's diagnosed her with sinus infection . Instruct patient that other possible work -up could be evaluation by Neurologist, ENT,MRI. Patient states she would like to go and have MRI done and to see Neurologist . ED Medical Decision Making - Medical Decision Making 43 yo female with c/o of pressure in her head. Patient denies headache, chest pain and SOB. She's had no recent fall or trauma. She states her symptoms are the same as when she was seen on 06/17/19. She does not want any medical asael atment today she is requesting referral for more evaluation of her symptoms. Instruct pt to follow up with her PCP she states "he's not doing anything" he thinks it a sinus infection "I need to know whom else I can see. Pt given referred back to her PCP and to her Insurance company for assistance with finding MD in network. Referral to local Neurologist given. Pt very appreciate of the assistance she plans to follow up to learn more about her symptoms. ED Disposition for MSE Clinical Impression: Pressure in head Disposition: Z-07 MED SCREENING EXAM-LEFT Is pt being admited?: No Does the pt Need Aspirin: No Condition: Stable Additional Instructions: Please follow up with your Primary Doctor for referrals to see Neurologist, ENT and or have MRI. You can also call your health insurance company and get referrals to doctors in your network. If you develop headache fever, weakness, change in speech , chest pain, difficulty breathing please return to ER Neurologist. Dr. Rao [phone] Malcolm , or Dr Geo Lindsey Referrals: PRIMARY CARE, [Primary Care Provider] - 3-5 Days
== END 2019-06-22 16:00 | disposition left against medical advice (07) ==
LOC: ED 14:54
DX: R51 Headache (principal)

== ENCOUNTER 2019-09-06 13:06 | Emergency (ER) | payer OTHER ==
[2019-09-06 13:22] VITALS: BP 143/98
== END 2019-09-06 13:42 | disposition left against medical advice (07) ==
LOC: ED 13:06
DX: R07.9 Chest pain, unspecified (principal); Z53.21 Procedure and treatment not carried out due to patient leaving prior to being seen by health care provider
CPT/HCPCS: 93005; 93010

== ENCOUNTER 2020-03-19 19:45 | Emergency (ER) | payer OTHER ==
[2020-03-19 20:23] VITALS: BP 132/72
--- NOTE | 2020-03-19 21:26 | Emergency Department Report ---
ED Lower Extremity HPI - General Chief Complaint: Extremity Injury, Lower Stated Complaint: RIGHT LEG PAIN Time Seen by Provider: 03/19/20 21:06 Source: patient Mode of arrival: Ambulatory Limitations: No Limitations - History of Present Illness Initial Comments: Patient is a 44-year-old female that presents emergency room with complaints of left lateral calf pain. Patient states the pain is been going on for 2 weeks. Patient dates is a pulling sensation. Patient dates the pain is an 8 out of 10. Patient dates the pain is better with rest and worse with movement and ambulation. Patient denies trauma. Patient denies having knowledge of an injury. Patient not sure if she injured it. Patient states she exercises a lot she is very active. Patient states she is just been working through the pain. Patient states she has not seen a primary care, urgent care or orthopedist for this. Patient states she has not used any [id number] medications. Patient states she has a past medical history of hypertension is compliant with her atenolol and hydrochlorothiazide. MD Complaint: leg injury -: Sudden, week(s) Injury: Leg: Left (Lateral calf) Type of Injury: unknown Place: home Severity: severe Severity scale (0 -10): 8 Improves With: rest Worsens With: weight bearing, movement Context: other Associated Symptoms: ambulatory. denies: snap/pop sensation, swelling, numbness, tingling, unable to bear weight, able to partially bear weight - Related Data Previous Rx's Medication Instructions Recorded Last Taken Type Amoxicillin/Potassium Clav 1 each PO BID 7 Days #14 tablet 06/15/19 Unknown Rx [Augmentin 875-125 Tablet] Cetirizine HCl [Zyrtec 10mg tab] 10 mg PO DAILY #30 tablet 06/15/19 Unknown Rx Fluticasone [Flonase] 1 spray NS QDAY #1 bottle 06/15/19 Unknown Rx Acetaminophen [Acetaminophen TAB] 1,000 mg PO Q6HR PRN #30 tablet 06/17/19 Unknown Rx Metoclopramide [Reglan] 10 mg PO Q6H #30 tablet 06/17/19 Unknown Rx diphenhydrAMINE [Benadryl CAP] 25 mg PO Q6HR PRN #30 capsule 06/17/19 Unknown Rx Allergies Allergy/AdvReac Type Severity Reaction Status Date / Time No Known Allergies Allergy Verified 08/15/16 12:46 ED Review of Systems ROS: Stated complaint: RIGHT LEG PAIN Other details as noted in HPI Constitutional: denies: chills, fever Eyes: denies: eye pain, eye discharge, vision change ENT: denies: ear pain, throat pain Respiratory: denies: cough, shortness of breath, wheezing Cardiovascular: denies: chest pain, palpitations Endocrine: no symptoms reported Gastrointestinal: denies: abdominal pain, nausea, diarrhea Genitourinary: denies: urgency, dysuria, discharge Musculoskeletal: denies: back pain, joint swelling, arthralgia Skin: denies: rash, lesions Neurological: denies: headache, weakness, paresthesias Psychiatric: denies: anxiety, depression Hematological/Lymphatic: denies: easy bleeding, easy bruising ED Past Medical Hx - Past Medical History Previous Medical History?: Yes Hx Hypertension: Yes Additional medical history: Anxiety, Panic attacks - Surgical History Past Surgical History?: Yes Additional Surgical History: TUBAL LIGATION. X 2 - Family History Family history: no significant - Social History Smoking Status: Never Smoker Substance Use Type: None - Medications Home Medications: Home Medications Medication Instructions Recorded Confirmed Last Taken Type Amoxicillin/Potassium Clav 1 each PO BID 7 Days #14 tablet 06/15/19 Unknown Rx [Augmentin 875-125 Tablet] Cetirizine HCl [Zyrtec 10mg tab] 10 mg PO DAILY #30 tablet 06/15/19 Unknown Rx Fluticasone [Flonase] 1 spray NS QDAY #1 bottle 06/15/19 Unknown Rx Acetaminophen [Acetaminophen TAB] 1,000 mg PO Q6HR PRN #30 tablet 06/17/19 Unknown Rx Metoclopramide [Reglan] 10 mg PO Q6H #30 tablet 06/17/19 Unknown Rx diphenhydrAMINE [Benadryl CAP] 25 mg PO Q6HR PRN #30 capsule 06/17/19 Unknown Rx ED Physical Exam - General Limitations: No Limitations General appearance: alert, in no apparent distress - Head Head exam: Present: atraumatic, normocephalic - Eye Eye exam: Present: normal appearance - ENT ENT exam: Present: mucous membranes moist - Neck Neck exam: Present: normal inspection - Respiratory Respiratory exam: Present: normal lung sounds bilaterally. Absent: respiratory distress - Cardiovascular Cardiovascular Exam: Present: regular rate, normal rhythm. Absent: systolic murmur, diastolic murmur, rubs, gallop - GI/Abdominal GI/Abdominal exam: Present: soft, normal bowel sounds - Extremities Exam Extremities exam: Present: normal inspection, full ROM. Absent: tenderness, normal capillary refill, pedal edema, joint swelling, calf tenderness - Back Exam Back exam: Present: normal inspection - Neurological Exam Neurological exam: Present: alert, oriented X3 - Psychiatric Psychiatric exam: Present: normal affect, normal mood - Skin Skin exam: Present: warm, dry, intact, normal color. Absent: rash ED Course Vital Signs 03/19/20 20:11 Temperature 98.4 F Pulse Rate 66 Respiratory 19 Rate Blood Pressure 132/72 O2 Sat by Pulse 98 Oximetry - Reevaluation(s) Reevaluation #1: I discussed all clinical findings with patient. I discussed plan of care with patient. Patient agrees with plan of care. Patient is stable for discharge. Patient will be discharged home. Patient given discharge instructions. Patient voiced understanding of discharge instructions. 03/19/20 21:34 ED Lower Extremity MDM - Medical Decision Making Patient is a 44-year-old female that presents emergency room with complaints of right lateral calf pain x2 weeks. Patient describes it as a pulling pain. Patient denies trauma. Patient does not recall having any type of injury or twisting of the lower extremity. Patient had a medical clearing exam. Patient is medically clear. Patient not require any further evaluation in the emergency room. Patient will need to follow-up with an orthopedist and her primary care. - Differential Diagnosis Sprain, strain, leg pain Critical care attestation.: If time is entered above; I have spent that time in minutes in the direct care of this critically ill patient, excluding procedure time. ED Disposition Clinical Impression: Strain of left calf muscle Disposition: Z-07 MED SCREENING EXAM-LEFT Is pt being admited?: No Does the pt Need Aspirin: No Condition: Stable Instructions: Muscle Strain (ED) Additional Instructions: Patient to follow-up with primary care in 2 to 3 days. Patient to follow-up with orthopedist in 2 to 3 days. Patient to rest. Patient to increase water. Patient to avoid strenuous exercise or heavy lifting until cleared by orthopedist. Patient to take Tylenol or ibuprofen as needed for pain. Patient to continue all medications. Patient to monitor blood pressure. Patient to return to the ER if condition worsens, changes or new symptoms arise. Referrals: JANESSA PICHARDO MD [Primary Care Provider] - 2-3 Days ZAINAB ROGERS MD [Staff Physician] - 2-3 Days Time of Disposition: 21:37
== END 2020-03-19 21:45 | disposition left against medical advice (07) ==
LOC: ED 19:45
DX: S86.911A Strain of unspecified muscle(s) and tendon(s) at lower leg level, right leg, initial encounter (principal); Z53.21 Procedure and treatment not carried out due to patient leaving prior to being seen by health care provider; X58.XXXA Exposure to other specified factors, initial encounter; Y93.89 Activity, other specified; Y92.89 Other specified places as the place of occurrence of the external cause; Y99.8 Other external cause status

== ENCOUNTER 2020-07-07 10:06 | Emergency (ER) | payer OTHER ==
[2020-07-07] MEDS ORDERED: ASPIRIN 325 MG TAB PO ONE (10:12)
--- NOTE | 2020-07-07 10:38 | XRay Report ---
XR chest routine 2V INDICATION / CLINICAL INFORMATION: Chest Pain. COMPARISON: None available. FINDINGS: SUPPORT DEVICES: None. HEART /PULMONARY VASCULATURE: No significant abnormality. LUNGS / PLEURA: No significant pulmonary or pleural abnormality. No pneumothorax. ADDITIONAL FINDINGS: No significant additional findings. IMPRESSION: 1. No acute findings. Signer Name: Aaron Mercedes MD Signed: 07/07/2020 10:34 AM Workstation Name: [id number]
[2020-07-07 11:22] LABS: Eosinophils # (Auto) 0.2 K/mm3 (0.0-0.4); Eosinophils % (Auto) 3.4 % (0.0-4.3); Hematocrit 38.1 % (30.3-42.9); Hemoglobin 13.1 gm/dl (10.1-14.3); Lymphocytes # (Auto) 2.2 K/mm3 (1.2-5.4); Lymphocytes % (Auto) 49.3 % (13.4-35.0); Mean Corpuscular HGB Conc 34 % (30-34); Mean Corpuscular Volume 84 fl (79-97); Monocytes # (Auto) 0.3 K/mm3 (0.0-0.8); Monocytes % (Auto) 6.4 % (0.0-7.3); Platelet Count 247 K/mm3 (140-440); Red Blood Count 4.56 M/mm3 (3.65-5.03); Red Cell Distribution Width 19.6 % (13.2-15.2)
[2020-07-07 11:41] LABS: Blood Urea Nitrogen 15 mg/dL (7-17); Calcium 10.2 mg/dL (8.4-10.2); Hemolysis Index 19
[2020-07-07 11:45] LABS: BUN/Creatinine Ratio 21
--- NOTE | 2020-07-07 12:13 | Emergency Department Report ---
ED General Adult HPI - General Chief complaint: Chest Pain Stated complaint: CHEST HEAVY Time Seen by Provider: 07/07/20 11:57 Source: patient Mode of arrival: Ambulatory Limitations: No Limitations - History of Present Illness Initial comments: This is a pleasant 44-year-old female presents to the emergency room reporting chest chest tightness and heaviness as well as lack of energy. Patient denies any difficulty breathing, no pain, no nausea no vomiting, no feeling of doom. Patient reports a history of hypertension is taking her medications. She denies any radiation of discomfort. 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 She denies any suicidal or homicidal ideation. Onset/Timin -: days(s) Location: chest Severity scale (0 -10): 0 Quality: other (Heaviness) Consistency: constant (But improving since she has been able to sit here.) Associated Symptoms: denies other symptoms - Related Data Previous Rx's Medication Instructions Recorded Last Taken Type Amoxicillin/Potassium Clav 1 each PO BID 7 Days #14 tablet 06/15/19 Unknown Rx [Augmentin 875-125 Tablet] Cetirizine HCl [Zyrtec 10mg tab] 10 mg PO DAILY #30 tablet 06/15/19 Unknown Rx Fluticasone [Flonase] 1 spray NS QDAY #1 bottle 06/15/19 Unknown Rx Acetaminophen [Acetaminophen TAB] 1,000 mg PO Q6HR PRN #30 tablet 06/17/19 Unknown Rx Metoclopramide [Reglan] 10 mg PO Q6H #30 tablet 06/17/19 Unknown Rx diphenhydrAMINE [Benadryl CAP] 25 mg PO Q6HR PRN #30 capsule 06/17/19 Unknown Rx Allergies Allergy/AdvReac Type Severity Reaction Status Date / Time No Known Allergies Allergy Verified 08/15/16 12:46 ED Review of Systems ROS: Stated complaint: CHEST HEAVY Other details as noted in HPI Comment: All other systems reviewed and negative ED Past Medical Hx - Past Medical History Hx Hypertension: Yes Additional medical history: Anxiety, Panic attacks - Surgical History Past Surgical History?: Yes Additional Surgical History: TUBAL LIGATION. X 2 - Social History Smoking Status: Never Smoker Substance Use Type: None - Medications Home Medications: Home Medications Medication Instructions Recorded Confirmed Last Taken Type Amoxicillin/Potassium Clav 1 each PO BID 7 Days #14 tablet 06/15/19 Unknown Rx [Augmentin 875-125 Tablet] Cetirizine HCl [Zyrtec 10mg tab] 10 mg PO DAILY #30 tablet 06/15/19 Unknown Rx Fluticasone [Flonase] 1 spray NS QDAY #1 bottle 06/15/19 Unknown Rx Acetaminophen [Acetaminophen TAB] 1,000 mg PO Q6HR PRN #30 tablet 06/17/19 Unknown Rx Metoclopramide [Reglan] 10 mg PO Q6H #30 tablet 06/17/19 Unknown Rx diphenhydrAMINE [Benadryl CAP] 25 mg PO Q6HR PRN #30 capsule 06/17/19 Unknown Rx ED Physical Exam - General Limitations: No Limitations General appearance: alert, in no apparent distress - Head Head exam: Present: atraumatic, normocephalic - Eye Eye exam: Present: normal appearance - ENT ENT exam: Present: mucous membranes moist - Neck Neck exam: Present: normal inspection - Respiratory Respiratory exam: Present: normal lung sounds bilaterally. Absent: respiratory distress - Cardiovascular Cardiovascular Exam: Present: regular rate, normal rhythm. Absent: systolic murmur, diastolic murmur, rubs, gallop - GI/Abdominal GI/Abdominal exam: Present: soft, normal bowel sounds - Extremities Exam Extremities exam: Present: normal inspection - Back Exam Back exam: Present: normal inspection - Neurological Exam Neurological exam: Present: alert, oriented X3 - Psychiatric Psychiatric exam: Present: normal affect, normal mood - Skin Skin exam: Present: warm, dry, intact, normal color. Absent: rash ED Course Vital Signs 07/07/20 10:11 Temperature 98.0 F Pulse Rate 74 Respiratory 18 Rate Blood Pressure 147/91 [Left] O2 Sat by Pulse 98 Oximetry ED Medical Decision Making - Lab Data Result diagrams: 07/07/20 10:53 07/07/20 10:53 - Radiology Data Radiology results: report reviewed Patient: ANA BOLANOS MR#: [id number] : 1975 Acct:[id number] Age/Sex: 44 / F ADM Date: 07/07/20 Loc: ED Attending Dr: Ordering Physician: ED DOCMD Date of Service: 07/07/20 Procedure(s): XR chest routine 2V Accession Number(s): [id number] cc: ED DOC, Fluoro Time In Minutes: XR chest routine 2V INDICATION / CLINICAL INFORMATION: Chest Pain. COMPARISON: None available. FINDINGS: SUPPORT DEVICES: None. HEART /PULMONARY VASCULATURE: No significant abnormality. LUNGS / PLEURA: No significant pulmonary or pleural abnormality. No pneumothorax. ADDITIONAL FINDINGS: No significant additional findings. IMPRESSION: 1. No acute findings. Signer Name: Lucero Mercedes MD Signed: 07/07/2020 10:34 AM Workstation Name: [id number] Transcribed By: MONET Dictated By: LUCERO MERCEDES MD Electronically Authenticated By: LUCERO MERCEDES MD Signed Date/Time: 07/07/201033 DD/ 33 TD/TT: - Medical Decision Making This is a pleasant 44-year-old female presents to the emergency room reporting chest chest tightness and heaviness as well as lack of energy. Patient denies any difficulty breathing, no pain, no nausea no vomiting, no feeling of doom. Patient reports a history of hypertension is taking her medications. She denies any radiation of discomfort. 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 She denies any suicidal or homicidal ideation. Chest x-ray is normal EKG is within normal limits labs are stable. I recommend working and managing your anxiety and stress level. Try to do daily walks 30 minutes with no phone. 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 Rest, read a book. Follow-up with your primary care provider. Critical care attestation.: If time is entered above; I have spent that time in minutes in the direct care of this critically ill patient, excluding procedure time. ED Disposition Clinical Impression: Chest tightness, Anxiety Disposition: DC-01 TO HOME OR SELFCARE Is pt being admited?: No Does the pt Need Aspirin: No Condition: Stable Instructions: Managing Anxiety, Adult Additional Instructions: Chest x-ray is normal EKG is within normal limits labs are stable. I recommend working and managing your anxiety and stress level. Try to do daily walks 30 minutes with no phone. 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 Rest, read a book. Follow-up with your primary care provider. Referrals: [facility] [Other] - 3-5 Days [facility] [Outside] - 3-5 Days
[2020-07-07 13:12] VITALS: BP 141/87
== END 2020-07-07 12:50 | disposition home or self-care (01) ==
LOC: ED 10:06
DX: F41.9 Anxiety disorder, unspecified (principal); R07.89 Other chest pain; I10 Essential (primary) hypertension; Z79.899 Other long term (current) drug therapy; Z98.51 Tubal ligation status; Z98.890 Other specified postprocedural states
CPT/HCPCS: 36415; 71046; 80048; 84484; 85025; 93005